=== PATIENT | female | born 1940 | race Caucasian/White ===

== ENCOUNTER 2020-06-23 05:47 | Inpatient (IN) ==
[~2020-06-23 05:47] MED LIST: Vancomycin 1,500 MG in NS 0.9% 250 ml 250 ML IVPB SCH
[2020-06-23] MEDS ORDERED: Buffered Lidocaine 1% SYRIN 1 ml INTRADERM ONE ×2 (06:00→06:46)
[2020-06-23] MEDS ORDERED: Lactated Ringers 1000 ml BAG 1,000 ML IV SCH (06:00)
[2020-06-23] MEDS ORDERED: Bacitracin INJECTION 50,000 UNITS ONE ×4 (06:36→15:13)
[2020-06-23] MEDS ORDERED: Lidocaine 1% w EPI 1:100,000 MDV 20 ML VIAL ONE (06:36)
[2020-06-23] MEDS ORDERED: Bupivacaine 0.25% SDV 30 ML ONE (06:36)
[2020-06-23] MEDS ORDERED: Midazolam 2 mg/2 ml VIAL 1 mg/ml 2 ml VIAL (2 mg) ONE (07:06)
[2020-06-23] MEDS ORDERED: Remifentanil 2 MG VIAL ONE ×4 (07:06→12:52)
[2020-06-23] MEDS ORDERED: fentaNYL 250 mcg/5 ml 50 MCG/ML 5 ml VIAL (250 MCG) ONE (07:06)
[2020-06-23] MEDS ORDERED: Rocuronium 50 mg VIAL 10 mg/ml 5 ml VIAL (50 mg) ONE (07:06)
[2020-06-23] MEDS ORDERED: Dexamethasone IV 4 MG/ML VIAL 1 ml VIAL ONE (07:07)
[2020-06-23] MEDS ORDERED: Ondansetron 4 mg VIAL 2 MG/ML 2 ml VIAL ONE (07:07)
[2020-06-23] MEDS ORDERED: Propofol 10 MG/ML 20 ML BTL ONE (07:07)
[2020-06-23] MEDS ORDERED: Lidocaine 2% PF 5 ML VIAL ONE ×2 (07:08→19:25)
[2020-06-23] MEDS ORDERED: Phenylephrine IV 10 MG/ML 1 ml VIAL ONE (07:08)
[2020-06-23] MEDS ORDERED: Propofol 10 mg/ml 100 ML BTL 300 ML ONE ×2 (07:18→14:42)
[2020-06-23] MEDS ORDERED: Succinylcholine 200 mg VIAL 20 mg/ml 10 ml VIAL (200 mg) ONE (08:14)
[2020-06-23] MEDS ORDERED: Thrombin 5,000 UNITS 1 APPLIC KIT - topical use - TOPICAL ONE ×2 (10:28→14:59)
[2020-06-23] MEDS ORDERED: Vancomycin 1,000 MG VIAL ONE (10:46)
[2020-06-23 14:08] LABS: ABS Eosinophils 0.1 10^3/ul (0-0.6); ABS Lymphocytes 1.1 10^3/ul (1.0-4.8); ABS Monocytes 0.5 10^3/ul (0-0.8); ABS Neutrophils 15.9 10^3/ul (1.5-7.7); Eosinophil % 0.3 %; Hematocrit 33 % (35-47); Hemoglobin 10.9 g/dL (12.0-16.0); Lymphocyte % 6.5 %; Mean Corpuscular HGB Conc 33 g/dL (31-36); Mean Corpuscular Hemoglobin 29 pg (27-31); Mean Corpuscular Volume 87 fL (80-97); Mean Platelet Volume 7.7 fL (7.4-10.4); Platelet Count 311 10^3/uL (150-450); Red Blood Count 3.77 10^6 /uL (3.70-4.87); Red Cell Distribution Width 14 % (10-15); White Blood Count 17.7 10^3/uL (3.5-10.8)
[2020-06-23 14:14] LABS: INR 2.65 (0.82-1.09)
[2020-06-23] MEDS ORDERED: HYDROmorphone 1 MG/1 ML SYRINGE ONE ×3 (14:45→19:23)
[2020-06-23] MEDS ORDERED: Gelfoam Sponge SIZE 100 SPONGE ONE (14:59)
[2020-06-23] MEDS ORDERED: Remifentanil 2 MG VIAL IV ONE (15:45)
[2020-06-23 15:53] LABS: INR 1.1 (0.82-1.09)
[2020-06-23] MEDS ORDERED: Ondansetron 4 mg VIAL 2 MG/ML 2 ml VIAL IV PRN ×2 (16:07→20:23)
[2020-06-23] MEDS ORDERED: Morphine 2 MG/ML SYRINGE IV PRN (16:20)
[2020-06-23 18:08] LABS: ABS Lymphocytes 1.2 10^3/ul (1.0-4.8); ABS Monocytes 0.8 10^3/ul (0-0.8); ABS Neutrophils 17.6 10^3/ul (1.5-7.7); Hematocrit 28 % (35-47); Hemoglobin 9.2 g/dL (12.0-16.0); Lymphocyte % 6.1 %; Mean Corpuscular HGB Conc 33 g/dL (31-36); Mean Corpuscular Hemoglobin 29 pg (27-31); Mean Corpuscular Volume 88 fL (80-97); Mean Platelet Volume 7.9 fL (7.4-10.4); Platelet Count 318 10^3/uL (150-450); Red Blood Count 3.18 10^6 /uL (3.70-4.87); Red Cell Distribution Width 14 % (10-15); White Blood Count 19.7 10^3/uL (3.5-10.8)
[2020-06-23] MEDS ORDERED: Naloxone 0.4 mg VIAL 0.4 mg/ml 1 ml VIAL IV PRN (20:23)
[2020-06-23] MEDS ORDERED: Acetaminophen IV 1 GM/100ML 1,000 MG/100 ML VIAL IVPB ONE (20:24)
[2020-06-23] MEDS ORDERED: Acetaminophen IV 1 GM/100ML 100 ML ONE (20:28)
[2020-06-23] MEDS ORDERED: fentaNYL 100 mcg/2 ml 50 MCG/ML VIAL ONE (20:54)
[2020-06-23] MEDS: fentaNYL 100 mcg/2 ml 50 MCG/ML VIAL IV PRN ×2 (20:55→21:07)
[2020-06-23] MEDS ORDERED: Vancomycin 1,500 MG in NS 0.9% 250 ml 250 ML IVPB ONE (21:00)
[2020-06-23] MEDS: Lactated Ringers 1000 ml BAG 1,000 ML IV SCH (21:35)
[2020-06-23] MEDS: oxyCODONE/Acetamin 5/325 mg TAB PO PRN (22:01)
[2020-06-23] MEDS ORDERED: Dextrose 50% Syringe 50 ml 25 GM/50 ML SYRINGE IV PUSH PRN (23:08)
[2020-06-24] MEDS: Nystatin TOP POWDER 15 GM BTL TOPICAL SCH ×4 (00:30→21:17)
[2020-06-24] MEDS: oxyCODONE/Acetamin 5/325 mg TAB PO PRN ×3 (03:33→10:33)
[2020-06-24 04:58] LABS: ABS Lymphocytes 1.2 10^3/ul (1.0-4.8); ABS Monocytes 1.2 10^3/ul (0-0.8); ABS Neutrophils 15.1 10^3/ul (1.5-7.7); Hematocrit 29 % (35-47); Hemoglobin 9.7 g/dL (12.0-16.0); Lymphocyte % 6.6 %; Mean Corpuscular HGB Conc 33 g/dL (31-36); Mean Corpuscular Hemoglobin 29 pg (27-31); Mean Corpuscular Volume 87 fL (80-97); Mean Platelet Volume 7.7 fL (7.4-10.4); Platelet Count 247 10^3/uL (150-450); Red Blood Count 3.36 10^6 /uL (3.70-4.87); Red Cell Distribution Width 14 % (10-15); White Blood Count 17.5 10^3/uL (3.5-10.8)
[2020-06-24 05:07] LABS: Albumin 3.2 g/dL (3.2-5.2); Albumin/Globulin Ratio 1.9 (1-3); BUN/Creatinine Ratio 21.9 (8-20); Calcium 7.9 mg/dL (8.6-10.3); EGFR African American 108.9 (>60); Globulin 1.7 g/dL (2-4); Magnesium 1.5 mg/dL (1.9-2.7); Potassium 3.7 mmol/L (3.5-5.0); Total Bilirubin 0.6 mg/dL (0.2-1.0); Total Protein 4.9 g/dL (6.4-8.9)
[2020-06-24] MEDS ORDERED: Magnesium Sulfate 2 gm BAG 2 GM/50 ML BAG IVPB ONE (05:14)
[2020-06-24] MEDS: DULoxetine DR 30 mg CAP PO SCH ×2 (10:10→21:17)
[2020-06-24] MEDS: Polyethylene Glycol 3350 17 GM PACKET PO SCH (10:27)
[2020-06-24] MEDS: HYDROcodone/ACETAMIN 5/325 mg TAB PO PRN ×3 (14:49→23:49)
[2020-06-24] MEDS: Mometasone 220 MCG MDI INH SCH (20:09)
[2020-06-24] MEDS: CMCS: Simvastatin 20 mg TAB (NF) PO SCH (21:17)
[2020-06-24] MEDS: Lactated Ringers 1000 ml BAG 1,000 ML IV SCH (21:30)
[2020-06-25] MEDS: HYDROcodone/ACETAMIN 5/325 mg TAB PO PRN ×5 (04:46→21:40)
[2020-06-25 06:30] LABS: Urine Appearance Cloudy; Urine Bilirubin Negative (Negative); Urine Blood Negative (Negative); Urine Color Amber; Urine Glucose Negative (Negative); Urine Ketones Negative (Negative); Urine Nitrite Negative (Negative); Urine Protein 1+(30 mg/dL) (Negative); Urine Specific Gravity 1.026 (1.010-1.030); Urine Urobilinogen Negative (Negative)
[2020-06-25 06:33] LABS: Urine Bacteria Absent (Absent); Urine Red Blood Cell 1+(3-5/hpf) (Absent); Urine White Blood Cell Trace(0-5/hpf) (Absent)
[2020-06-25 07:23] LABS: Albumin/Globulin Ratio 1.6 (1-3); BUN/Creatinine Ratio 26.8 (8-20); Calcium 7.8 mg/dL (8.6-10.3); Globulin 1.9 g/dL (2-4); Potassium 3.4 mmol/L (3.5-5.0); Total Bilirubin 0.8 mg/dL (0.2-1.0); Total Protein 4.9 g/dL (6.4-8.9)
[2020-06-25] MEDS: Polyethylene Glycol 3350 17 GM PACKET PO SCH (08:58)
[2020-06-25] MEDS: DULoxetine DR 30 mg CAP PO SCH ×2 (08:58→20:52)
[2020-06-25] MEDS: Nystatin TOP POWDER 15 GM BTL TOPICAL SCH ×3 (08:58→20:53)
[2020-06-25] MEDS: Lactated Ringers 1000 ml BAG 1,000 ML IV SCH (19:04)
[2020-06-25] MEDS: Magnesium Hydroxide LIQ 30 ML UDC PO PRN (19:26)
[2020-06-25] MEDS: CMCS: Simvastatin 20 mg TAB (NF) PO SCH (20:52)
[2020-06-25] MEDS: Mometasone 220 MCG MDI INH SCH (21:25)
[2020-06-26] MEDS: HYDROcodone/ACETAMIN 5/325 mg TAB PO PRN ×4 (03:40→22:00)
[2020-06-26] MEDS: Polyethylene Glycol 3350 17 GM PACKET PO SCH (09:02)
[2020-06-26] MEDS: DULoxetine DR 30 mg CAP PO SCH ×2 (09:02→20:34)
[2020-06-26] MEDS: Nystatin TOP POWDER 15 GM BTL TOPICAL SCH ×3 (09:04→20:36)
[2020-06-26 15:27] LABS: ABS Basophils 0.1 10^3/ul (0-0.2); ABS Eosinophils 0.2 10^3/ul (0-0.6); ABS Lymphocytes 1.5 10^3/ul (1.0-4.8); ABS Neutrophils 11.5 10^3/ul (1.5-7.7); Eosinophil % 1.5 %; Hematocrit 23 % (35-47); Hemoglobin 7.5 g/dL (12.0-16.0); Lymphocyte % 10.3 %; Mean Corpuscular HGB Conc 33 g/dL (31-36); Mean Corpuscular Hemoglobin 29 pg (27-31); Mean Corpuscular Volume 87 fL (80-97); Mean Platelet Volume 7.5 fL (7.4-10.4); Platelet Count 242 10^3/uL (150-450); Red Blood Count 2.61 10^6 /uL (3.70-4.87); Red Cell Distribution Width 14 % (10-15); White Blood Count 14.2 10^3/uL (3.5-10.8)
[2020-06-26 15:42] LABS: Albumin 2.8 g/dL (3.2-5.2); Albumin/Globulin Ratio 1.3 (1-3); BUN/Creatinine Ratio 23.6 (8-20); Calcium 7.8 mg/dL (8.6-10.3); EGFR African American 129.7 (>60); EGFR Non-African American 107.2 (>60); Globulin 2.2 g/dL (2-4); Potassium 3.4 mmol/L (3.5-5.0); Total Bilirubin 0.8 mg/dL (0.2-1.0)
[2020-06-26] MEDS: Lactated Ringers 1000 ml BAG 1,000 ML IV SCH (16:51)
[2020-06-26] MEDS ORDERED: Potassium Chlor 20 meq TAB.ER PO ONE (17:45)
[2020-06-26] MEDS: Mometasone 220 MCG MDI INH SCH (19:46)
[2020-06-26] MEDS: CMCS: Simvastatin 20 mg TAB (NF) PO SCH (20:35)
[2020-06-27] MEDS: Magnesium Hydroxide LIQ 30 ML UDC PO PRN (06:10)
[2020-06-27 06:19] LABS: Hematocrit 23 % (35-47); Hemoglobin 7.5 g/dL (12.0-16.0); Mean Corpuscular HGB Conc 33 g/dL (31-36); Mean Corpuscular Hemoglobin 29 pg (27-31); Mean Corpuscular Volume 88 fL (80-97); Mean Platelet Volume 7.7 fL (7.4-10.4); Platelet Count 287 10^3/uL (150-450); Red Blood Count 2.61 10^6 /uL (3.70-4.87); Red Cell Distribution Width 14 % (10-15); White Blood Count 13.5 10^3/uL (3.5-10.8)
[2020-06-27 07:18] LABS: ABS Eosinophils 0.4 10^3/ul (0-0.6); ABS Lymphocytes 1.7 10^3/ul (1.0-4.8); ABS Neutrophils 10.3 10^3/ul (1.5-7.7); Eosinophil % 2.9 %; Lymphocyte % 12.5 %
[2020-06-27] MEDS: Nystatin TOP POWDER 15 GM BTL TOPICAL SCH ×3 (10:43→20:58)
[2020-06-27] MEDS: DULoxetine DR 30 mg CAP PO SCH ×2 (10:43→20:57)
[2020-06-27] MEDS: Polyethylene Glycol 3350 17 GM PACKET PO SCH (10:44)
[2020-06-27] MEDS: HYDROcodone/ACETAMIN 5/325 mg TAB PO PRN ×3 (11:15→20:58)
[2020-06-27] MEDS: Lactated Ringers 1000 ml BAG 1,000 ML IV SCH (14:07)
[2020-06-27] MEDS: Mometasone 220 MCG MDI INH SCH (20:50)
[2020-06-27] MEDS: CMCS: Simvastatin 20 mg TAB (NF) PO SCH (20:58)
[2020-06-28] MEDS: Magnesium Hydroxide LIQ 30 ML UDC PO PRN (02:02)
[2020-06-28] MEDS: HYDROcodone/ACETAMIN 5/325 mg TAB PO PRN (06:22)
[2020-06-28 06:31] LABS: Hematocrit 26 % (35-47); Hemoglobin 8.8 g/dL (12.0-16.0); Mean Corpuscular HGB Conc 34 g/dL (31-36); Mean Corpuscular Hemoglobin 29 pg (27-31); Mean Corpuscular Volume 85 fL (80-97); Mean Platelet Volume 7.3 fL (7.4-10.4); Platelet Count 346 10^3/uL (150-450); Red Cell Distribution Width 15 % (10-15); White Blood Count 12.6 10^3/uL (3.5-10.8)
[2020-06-28 07:31] LABS: ABS Eosinophils 0.5 10^3/ul (0-0.6); ABS Lymphocytes 1.4 10^3/ul (1.0-4.8); ABS Neutrophils 9.7 10^3/ul (1.5-7.7); Eosinophil % 3.6 %; Lymphocyte % 11.3 %; Nucleated Red Blood Cells % 0.1
[2020-06-28] MEDS: DULoxetine DR 30 mg CAP PO SCH ×2 (08:03→21:36)
[2020-06-28] MEDS: Polyethylene Glycol 3350 17 GM PACKET PO SCH (08:03)
[2020-06-28] MEDS: Nystatin TOP POWDER 15 GM BTL TOPICAL SCH ×3 (08:03→21:36)
[2020-06-28] MEDS: Mometasone 220 MCG MDI INH SCH (19:59)
[2020-06-28] MEDS ORDERED: diPHENhydraMINE CREAM 2%(NF) 28 gm TUBE TOPICAL SCH (21:00)
[2020-06-28] MEDS: CMCS: Simvastatin 20 mg TAB (NF) PO SCH (21:35)
[2020-06-29] MEDS: Polyethylene Glycol 3350 17 GM PACKET PO SCH (09:03)
[2020-06-29] MEDS: DULoxetine DR 30 mg CAP PO SCH ×2 (09:03→22:20)
[2020-06-29] MEDS: HYDROcodone/ACETAMIN 5/325 mg TAB PO PRN ×3 (09:08→22:31)
[2020-06-29] MEDS: Nystatin TOP POWDER 15 GM BTL TOPICAL SCH ×3 (09:11→22:20)
[2020-06-29] MEDS: Mometasone 220 MCG MDI INH SCH ×2 (19:45→23:25)
[2020-06-29] MEDS: CMCS: Simvastatin 20 mg TAB (NF) PO SCH (22:20)
[2020-06-30] MEDS: HYDROcodone/ACETAMIN 5/325 mg TAB PO PRN (03:22)
[2020-06-30 07:50] VITALS: BP 122/50
[2020-06-30] MEDS: DULoxetine DR 30 mg CAP PO SCH (09:04)
[2020-06-30] MEDS: Polyethylene Glycol 3350 17 GM PACKET PO SCH (09:05)
[2020-06-30] MEDS: Nystatin TOP POWDER 15 GM BTL TOPICAL SCH (09:12)
== END 2020-06-30 11:00 | disposition swing bed (61) | DRG 460 ==
LOC: AA 05:47 → ICU 19:39 → SSU 06-24 20:43
PROVIDERS: ADMIT Neurological Surgery; ATTEND Neurological Surgery